=== PATIENT | female | born 2000 | race Asian ===

== ENCOUNTER 2019-04-04 14:02 | Emergency (ER) | payer BC ==
[~2019-04-04] VITALS: Ht 160 cm; Wt 59.9 kg
[2019-04-04 14:04] VITALS: BP 116/77
[2019-04-04] MEDS ORDERED: BACITRACIN ZINC OINT 500U/GM, 0.9 GM ONE (14:24)
--- NOTE | 2019-04-04 14:49 | NUR ---
Patient/Caregiver given discharge instructions and they have confirmed that they understand the instructions. Patient ambulatory with steady gait. Pt left with all personal belongings.
== END 2019-04-04 14:50 | disposition home or self-care (01) ==
LOC: ED 14:23
DX: S61.305A Unspecified open wound of left ring finger with damage to nail, initial encounter (principal); Z89.022 Acquired absence of left finger(s); X78.1XXA Intentional self-harm by knife, initial encounter; Y93.89 Activity, other specified; Y92.009 Unspecified place in unspecified non-institutional (private) residence as the place of occurrence of the external cause; Y99.8 Other external cause status
CPT/HCPCS: 99283

== ENCOUNTER 2019-05-22 21:20 | Emergency (ER) | payer BC ==
[~2019-05-22] VITALS: Ht 162.6 cm; Wt 58.8 kg
[2019-05-22 21:21] VITALS: BP 123/83
[2019-05-22] MEDS ORDERED: LIDOCAINE-MPF 1%, 2ML INFIL ONE (22:00)
[2019-05-22] MEDS ORDERED: LIDOCAINE-MPF 1%, 5ML ONE (22:12)
== END 2019-05-22 22:41 | disposition home or self-care (01) ==
LOC: ED 21:50
DX: S61.210A Laceration without foreign body of right index finger without damage to nail, initial encounter (principal); W26.8XXA Contact with other sharp object(s), not elsewhere classified, initial encounter; Y93.E8 Activity, other personal hygiene; Y92.009 Unspecified place in unspecified non-institutional (private) residence as the place of occurrence of the external cause; Y99.8 Other external cause status
CPT/HCPCS: 12041; 99284